=== PATIENT | male | born 1975 | race African-American/Black ===

== ENCOUNTER 2017-07-30 14:04 | Emergency (ER) | payer OTHER ==
[~2017-07-30] VITALS: Ht 180.3 cm; Wt 126.6 kg
[~2017-07-30 14:04] MED LIST: FLEXERIL10 MG PO; NAPROSYN500 MG PO; VICODIN 5-3001 EACH PO
[2017-07-30 16:38] LABS: HEMATOCRIT 46.2 % (38.0-50.0); HEMOGLOBIN 15.1 G/DL (12.5-16.6); MCH 31.6 PG (29.0-34.0); MCHC 32.7 G/DL (30.0-36.0); MCV 96.7 FL (86-99); PLATELET COUNT 207 K/uL (156-360); RBC DIS.WIDTH-CV 13.1 % (11.8-14.6); RBC DIS.WIDTH-SD 46.9 % (39-53); RED BLOOD COUNT 4.78 M/uL (4.00-5.50); WHITE BLOOD COUNT 6.3 K/uL (4.1-10.2)
[2017-07-30 16:47] LABS: CHLORIDE 105 mEq/L (99-109); POTASSIUM 4.4 mEq/L (3.7-5.4); SODIUM 140 mEq/L (136-147)
[2017-07-30 16:49] LABS: GLUCOSE 86 mg/dL (70-99)
[2017-07-30 16:53] LABS: CREATININE 1.3 mg/dL (0.6-1.3); GFR ESTIMATE (CALCULATED) > 59 mL/min/ (58.99-99999)
[2017-07-30 16:54] LABS: UREA NITROGEN (BUN) 11 mg/dL (9-23)
[2017-07-30] MEDS ORDERED: FLEXERIL10 MG PO (17:35)
[2017-07-30 17:53] VITALS: BP 137/90
== END 2017-07-30 17:53 | disposition home or self-care (01) ==
LOC: EME 14:04
PROVIDERS: Physician Assistant
DX: S13.4XXA Sprain of ligaments of cervical spine, initial encounter (principal); M54.5 Low back pain; M51.36 Other intervertebral disc degeneration, lumbar region; V43.52XA Car driver injured in collision with other type car in traffic accident, initial encounter; Y92.410 Unspecified street and highway as the place of occurrence of the external cause
CPT/HCPCS: 72040; 72100; 80048; 85027; 99281; 99284